=== PATIENT | male | born 1955 | race Two or more races ===

== ENCOUNTER 2020-01-13 06:55 | Day surgery (SDC) | payer OTHER ==
[~2020-01-13 06:55] MED LIST: AMLODIPINE-OLM1 EACH PO; COZAAR25 MG PO
== END 2020-01-13 14:45 | disposition home or self-care (01) ==
LOC: CIR.AMB 06:55 → ADM 11:45 → CIR.AMB 11:45
PROVIDERS: ATTEND Orthopaedic Surgery
DX: M75.122 Complete rotator cuff tear or rupture of left shoulder, not specified as traumatic (principal); M75.22 Bicipital tendinitis, left shoulder; M19.012 Primary osteoarthritis, left shoulder